=== PATIENT | female | born 1940 | race Caucasian/White ===

== ENCOUNTER 2016-08-27 16:36 | Emergency (ER) | payer MEDICARE ==
[2016-08-27 18:36] VITALS: BP 123/67
--- NOTE | 2016-08-27 19:07 | UC ---
Ear Complaint HPI - HPI Summary HPI Summary: requesting ear irrigation ears feel like they are clogged and full of pressure - History of Current Complaint Chief Complaint: UCEar Stated Complaint: EAR PAIN Time Seen by Provider: 08/27/16 18:29 Hx Obtained From: Patient ?: No Onset/Duration: Gradual Onset, Lasting Weeks, Still Present Severity Initially: Mild Severity Currently: Mild Aggravating Factors: Nothing Alleviating Factors: Nothing Associated Signs/Symptoms: Positive: Hearing Loss - Allergies/Home Medications Allergies/Adverse Reactions: Allergies Allergy/AdvReac Type Severity Reaction Status Date / Time No Known Allergies Allergy Verified 08/27/16 17:59 Home Medications: Home Medications Cyanocobalamin [B12] 1,000 mcg PO 08/27/16 [History] PMH/Surg Hx/FS Hx/Imm Hx Previously Healthy: No Endocrine History Of: Reports: Thyroid Disease - hypo Denies: Diabetes Cardiovascular History Of: Reports: Hypertension Denies: Cardiac Disorders Respiratory History Of: Denies: COPD, Asthma GI/ History Of: Denies: Ulcer Cancer History Of: Denies: Breast Cancer - Surgical History Surgical History: None Surgery Procedure, Year, and Place: tonsils as a child. retinal eye surgery - Family History Known Family History: Positive: None Family History: no cardiovascular issues reported in family lineage - Social History Occupation: Retired Lives: With Family Alcohol Use: None Substance Use Type: None Smoking Status (MU): Never Smoked Tobacco - Immunization History Most Recent Influenza Vaccination: fall 2015 Review of Systems Constitutional: Negative Skin: Negative Eyes: Negative ENT: Ear Ache - b/l Respiratory: Negative Cardiovascular: Negative Gastrointestinal: Negative Genitourinary: Negative Motor: Negative Neurovascular: Negative Musculoskeletal: Negative Neurological: Negative Psychological: Negative All Other Systems Reviewed And Are Negative: Yes Physical Exam Triage Information Reviewed: Yes Appearance: Well-Appearing, No Pain Distress, Well-Nourished Vital Signs: Initial Vital Signs Temp 98.6 F 08/27/16 17:49 Pulse 74 08/27/16 17:49 Resp 16 08/27/16 17:49 BP 141/69 08/27/16 17:49 Pulse Ox 96 08/27/16 17:49 Vital Signs Reviewed: Yes Eye Exam: Normal Eyes: Positive: Conjunctiva Clear ENT Exam: Normal ENT: Positive: Normal ENT inspection, Hearing grossly normal, Pharynx normal, Other: - cerumen impaction both ears. Negative: Nasal congestion, Nasal drainage, TMs normal, Tonsillar swelling, Tonsillar exudate, Trismus, Muffled/ hoarse voice Neck exam: Normal Neck: Positive: Supple, Nontender, No Lymphadenopathy Respiratory Exam: Normal Respiratory: Positive: Chest non-tender, Lungs clear, Normal breath sounds, No respiratory distress, No accessory muscle use Cardiovascular Exam: Normal Cardiovascular: Positive: RRR, No Murmur, Pulses Normal, Brisk Capillary Refill Musculoskeletal Exam: Normal Musculoskeletal: Positive: Strength Intact, ROM Intact, No Edema Neurological Exam: Normal Neurological: Positive: Alert, Muscle Tone Normal Psychological Exam: Normal Psychological: Positive: Normal Response To Family Re-Evaluation - Re-Evaluation First Eval Change: Improved - large amount cerumen removed from both ear---pt reports relief of symptoms Ear Complaint Course/Dx - Course Course Of Treatment: irragate ears, hypertension education and diet change suggestions follow BP with PCP - Differential Dx/Diagnosis Differential Diagnosis/HQI/PQRI: Cerumen Impaction, Otitis Externa, Otitis Media , URI Provider Diagnoses: B/l cerumen impaction resolved. High blood pressure with DX and treatment for hypertension Discharge - Discharge Plan Condition: Stable Disposition: HOME Patient Education Materials: Cerumen Impaction (ED), DASH Eating Plan (ED), Hypertension (ED) Referrals: Rylee Watkins MD [Primary Care Provider] - 2 Weeks
== END 2016-08-27 19:10 | disposition home or self-care (01) ==
LOC: UCEAST 16:36
DX: H61.23 Impacted cerumen, bilateral (principal); I10 Essential (primary) hypertension
CPT/HCPCS: 99213; G0463

== ENCOUNTER 2016-09-17 17:38 | Emergency (ER) | payer MEDICARE ==
[2016-09-17 18:14] VITALS: BP 142/73
--- NOTE | 2016-09-17 18:26 | UC ---
Throat Pain/Nasal Sean HPI - History of Current Complaint Chief Complaint: UCGeneralIllness Stated Complaint: LUMP IN THROAT Time Seen by Provider: 09/17/16 18:24 - Allergies/Home Medications Allergies/Adverse Reactions: Allergies Allergy/AdvReac Type Severity Reaction Status Date / Time No Known Allergies Allergy Verified 09/17/16 18:02 Home Medications: Home Medications Benzonatate CAP* [Tessalon 100 MG CAP*] 200 mg PO Q6HR PRN 09/17/16 [History Confirmed 09/17/16] PMH/Surg Hx/FS Hx/Imm Hx Endocrine History Of: Reports: Thyroid Disease - hypo Denies: Diabetes Cardiovascular History Of: Reports: Hypertension Denies: Cardiac Disorders Respiratory History Of: Denies: COPD, Asthma GI/ History Of: Denies: Ulcer Cancer History Of: Denies: Breast Cancer - Surgical History Surgical History: Yes Surgery Procedure, Year, and Place: tonsils as a child. retinal eye surgery - 2010 - Family History Known Family History: Positive: None Family History: no cardiovascular issues reported in family lineage - Social History Alcohol Use: Occasionally Substance Use Type: None Smoking Status (MU): Never Smoked Tobacco - Immunization History Most Recent Influenza Vaccination: fall 2015 Most Recent Pneumonia Vaccination: 2015 Physical Exam Vital Signs: Initial Vital Signs Temp 98.8 F 09/17/16 18:07 Pulse 82 09/17/16 18:07 Resp 16 09/17/16 18:07 BP 142/73 09/17/16 18:07 Pulse Ox 95 09/17/16 18:07
--- NOTE | 2016-09-17 19:32 | UC ---
Throat Pain/Nasal Sean HPI - HPI Summary HPI Summary: 76 y/o female presents to the urgent care c/o of mild sore throat and ear pressure for the past 2 weeks. Patient states she also has a mild productive cough. She reports she was seen about 3 weeks ago with ear pain and was Rx some otic antibiotic drops. Then she f/u up with her PCP who gave her a referral to the ENT for october 21. She was Rx Tessalon tabs for her cough but she still hasn't take them yet. Patient denies fever, SOB, chest pain. or ear pain. - History of Current Complaint Chief Complaint: UCGeneralIllness Stated Complaint: LUMP IN THROAT Time Seen by Provider: 09/17/16 18:24 Hx Obtained From: Patient Onset/Duration: Gradual Onset, Lasting Weeks, Still Present Severity: Moderate Pain Intensity: 0 Pain Scale Used: 0-10 Numeric Cough: Productive - clear Associated Signs & Symptoms: Positive: Fever. Negative: Wheezing, Sinus Discomfort, Nasal Discharge - Epiglottits Risk Factors Epiglottis Risk Factors: Negative - Allergies/Home Medications Allergies/Adverse Reactions: Allergies Allergy/AdvReac Type Severity Reaction Status Date / Time No Known Allergies Allergy Verified 09/17/16 18:02 Home Medications: Home Medications Benzonatate CAP* [Tessalon 100 MG CAP*] 200 mg PO Q6HR PRN 09/17/16 [History Confirmed 09/17/16] PMH/Surg Hx/FS Hx/Imm Hx Endocrine History Of: Reports: Thyroid Disease - hypo Denies: Diabetes Cardiovascular History Of: Reports: Hypertension Denies: Cardiac Disorders Respiratory History Of: Denies: COPD, Asthma GI/ History Of: Denies: Ulcer Cancer History Of: Denies: Breast Cancer - Surgical History Surgical History: Yes Surgery Procedure, Year, and Place: tonsils as a child. retinal eye surgery - 2010 - Family History Known Family History: Positive: None, Other - Pancreatic cancer, and breast cancer Family History: no cardiovascular issues reported in family lineage - Social History Alcohol Use: Occasionally Substance Use Type: None Smoking Status (MU): Never Smoked Tobacco - Immunization History Most Recent Influenza Vaccination: fall 2015 Most Recent Pneumonia Vaccination: 2015 Review of Systems Constitutional: Negative Skin: Negative Eyes: Negative ENT: Other - RT ear pressure Respiratory: Cough Cardiovascular: Negative Gastrointestinal: Negative Genitourinary: Negative Motor: Negative Neurovascular: Decreased Sensation Musculoskeletal: Negative Neurological: Negative Psychological: Negative All Other Systems Reviewed And Are Negative: Yes Physical Exam Triage Information Reviewed: Yes Appearance: Well-Appearing, No Pain Distress, Well-Nourished Vital Signs: Initial Vital Signs Temp 98.8 F 09/17/16 18:07 Pulse 82 09/17/16 18:07 Resp 16 09/17/16 18:07 BP 142/73 09/17/16 18:07 Pulse Ox 95 09/17/16 18:07 Vital Signs Reviewed: Yes Eye Exam: Normal Eyes: Positive: Conjunctiva Clear ENT: Positive: Hearing grossly normal, Pharynx normal, Other: - RT ear with impacted cerumen unable to visualize TM. LF ear canal with mild cerum, no erythema, TM pearly and positive light reflex. Dental Exam: Normal Dental: Positive: Cervical Lymphadenopathy - anterior Neck exam: Normal Respiratory Exam: Normal Respiratory: Positive: Chest non-tender, Lungs clear, Normal breath sounds Cardiovascular Exam: Normal Cardiovascular: Positive: RRR, No Murmur Abdominal Exam: Normal Abdomen Description: Positive: Nontender, No Organomegaly, Soft Bowel Sounds: Positive: Present Musculoskeletal Exam: Normal Psychological Exam: Normal Skin Exam: Normal Throat Pain/Nasal Course/Dx - Course Course Of Treatment: RT ear impacted with cerum. Some of cerume removed with currete. Patient Rx Acetic acid otic drops and advised to f/u with the ENT on October 21. - Differential Dx/Diagnosis Differential Diagnosis/HQI/PQRI: Laryngitis, Otitis Media, Peritonsillar Abscess , Pharyngitis, URI Provider Diagnoses: cough, cerumen impaction, uncontrolled HTN Discharge - Discharge Plan Condition: Stable Disposition: HOME Prescriptions: Acetic Acid (Otic) [Acetic Acid] 2 % OTIC DAILY #1 renae Patient Education Materials: Cerumen Impaction (ED), Cold Symptoms (ED) Referrals: Rylee Watkins MD [Primary Care Provider] - Additional Instructions: Please use otic drops as directed and take OTC tylenol prn to alleviate symptoms. Take Tessalon tabs as directed by your PCP and f/u with your ENT appt on October 21/2017 for further evaluation and treatment. Please decrease salt intake and f/u with your PCP for uncontrol HTN
== END 2016-09-17 19:32 | disposition home or self-care (01) ==
LOC: UCEAST 17:38
DX: R05 Cough (principal); H61.21 Impacted cerumen, right ear; I10 Essential (primary) hypertension; E03.9 Hypothyroidism, unspecified
CPT/HCPCS: 99212; G0463

== ENCOUNTER 2017-05-24 06:37 | Day surgery (SDC) | payer MEDICARE ==
--- NOTE | 2017-05-19 22:17 | HP ---
PREOPERATIVE HISTORY AND PHYSICAL: DATE OF SURGERY/ADMISSION: 05/24/17 DATE OF OFFICE VISIT/ENCOUNTER: 05/09/17 ATTENDING SURGEON: Sravani Johnson MD * (DICTATED BY RIANNA FINN) PROCEDURE: Left small finger Dupuytren's excision. CHIEF COMPLAINT: Left small finger Dupuytren's contracture. HISTORY OF PRESENT ILLNESS: This is a 76-year-old female who has a contracture of her bilateral small fingers. She thinks that they had been present for close to 2 years. She has slight pain when she makes a tight fist with her left hand; otherwise, she does not have any discomfort. She denies any injury. She has no numbness or tingling associated with it. As far as she knows, there is no one in her family who has the same condition. She has not had any treatment for this problem. She is interested in pursuing surgical intervention , first for her left small finger and then she may consider having her right small finger done as well. She has consented to proceed with a left small finger Dupuytren's excision. PAST MEDICAL HISTORY: 1. Hypothyroidism. 2. Hypertension. 3. Depression/anxiety. 4. Hypercholesterolemia. PAST SURGICAL HISTORY: Tonsillectomy. CURRENT MEDICATIONS: 1. Atorvastatin calcium 20 mg daily. 2. Clonazepam 0.5 mg p.r.n. 3. Hydrochlorothiazide 12.5 mg daily. 4. Levothyroxine sodium 100 mcg daily. 5. Sertraline HCL 100 mg daily. 6. Trifluoperazine HCL 2 mg daily. ALLERGIES: No known drug allergies. FAMILY MEDICAL HISTORY: Noncontributory. SOCIAL HISTORY: The patient is retired. She denies tobacco use and recreational drug use. She does drink alcohol on regular occasion. She said she has a glass of wine daily. REVIEW OF SYSTEMS: General: Negative for fevers, chills, or night sweats. No known anesthesia problems. HEENT: Negative for headache, lightheadedness, or syncopal episodes. Integumentary: Negative for abrasions, lesions, or open wounds. Cardiothoracic: Positive for hypertension. Negative for chest pain, palpitations, or edema. Pulmonary: Negative for shortness of breath with exertion, chronic cough, COPD. GI: Negative for nausea, vomiting, diarrhea, constipation, and GERD. : Negative for nocturia, urinary frequency, urgency , history of UTIs, or kidney problems. Musculoskeletal: Positive for current complaints. Negative for chronic or intermittent back pain or history of fractures. Neurological: Positive for depression/anxiety. Negative for paresthesias, numbness, history of seizure, stroke, or epilepsy. Endocrine: Positive for hypothyroidism. Negative for diabetes. Hematologic: Negative for easy bruising, anemia, excessive bleeding or history of DVT. Infectious Disease: Negative for history of MRSA, hepatitis C or HIV. PHYSICAL EXAMINATION GENERAL: Well-developed, well-nourished 76-year-old female in no acute distress. VITAL SIGNS: Height 4 feet 9 Inches, weight 140 pounds, pulse rate 82, blood pressure 120/80. HEENT: Normocephalic, atraumatic. Pupils are equal, round, and reactive to light and accommodation. Extraocular movements are intact. Throat is clear. NECK: Supple. No palpable lymph nodes. PULMONARY: Lungs are clear to auscultation bilaterally. No wheezes, rales, or rhonchi. CARDIOVASCULAR: Regular rate and rhythm. S1, S2. No murmurs, rubs, or gallops. No edema. ABDOMEN: Positive bowel sounds, soft, nontender. NEUROLOGICAL: Alert and oriented x3. Cranial nerves II through XII are intact. Sensation is intact to light touch. MUSCULOSKELETAL: On exam of her left hand, she has a Dupuytren's contracture of her small finger with abductor digiti minimi cord with about a 20-degree contracture of the PIP joint. There is no MP joint contracture. She has full flexion of her fingers into a fist. Skin is intact. There is a slight nodule in the palm of her left hand in line with the ring finger. Neurovascular function is intact. ASSESSMENT: Left small finger Dupuytren's contracture. PLAN: The patient is scheduled to undergo a left small finger Dupuytren's excision with Dr. Johnson on 05/24/17. She will return to the office 10 days postop for followup and suture removal. A prescription for [place] was e-scribed to the patient's pharmacy for postoperative pain management. RIANNA FINN [id number]/[facility] #: [id number] SHEMAR
[~2017-05-24 06:37] MED LIST: Buffered Lidocaine 0.9% SYRIN* 5 ML/SYR SYRINGE INTRADERM ONE; DiMENhydriNATE IV* 50 MG/ML VIAL IV PUSH PRN; Famotidine IV* 10 MG/ML 2 ML (20 mg) IV ONE; Morphine INJ* 2 MG/ML 1 ML CARPUJECT IV PRN; Naloxone* 0.4 MG/ML 1 ML VIAL IV PRN; PROCHLORPERAZINE INJ 5 MG/ML 2 ML VIAL IV PRN; fentaNYL* 50 MCG/ML 2 ML VIAL (100 MCG VIAL) IV PRN; oxyCODONE/Acetamin 5/325 MG* TAB PO PRN
[2017-05-24] MEDS ORDERED: Famotidine IV* 10 MG/ML 2 ML (20 mg) ONE (06:43)
[2017-05-24] MEDS ORDERED: ceFAZolin 2 GM PREMIX (*) 2 GM/50 ML BAG IVPB ONE (06:45)
[2017-05-24] MEDS ORDERED: Lidocaine 1% INJ* 10 MG/ML 30 ML SDV ONE (07:11)
[2017-05-24] MEDS ORDERED: fentaNYL* 50 MCG/ML 2 ML VIAL (100 MCG VIAL) ONE (07:25)
[2017-05-24] MEDS ORDERED: Midazolam* 1 MG/ML 2 ML VIAL (2 MG) ONE (07:25)
[2017-05-24] MEDS ORDERED: KETAMINE HCL* 50 MG/ML 10 ML VIAL ONE (07:25)
[2017-05-24] MEDS ORDERED: Flumazenil* 0.1 MG/ML 5 ML MDV ONE (08:00)
[2017-05-24] MEDS ORDERED: Propofol* 10 MG/ML 20 ML BTL IV PUSH ONE (08:04)
[2017-05-24] MEDS ORDERED: Lidocaine 2% PF * 5 ML VIAL ONE (08:04)
[2017-05-24] MEDS ORDERED: Dexamethasone IV* 4 MG/ML 1 ML (4 MG) ONE (08:04)
[2017-05-24] MEDS ORDERED: Ketorolac INJ* 30 MG/ML 1 ML VIAL ONE (08:04)
[2017-05-24] MEDS ORDERED: Ondansetron INJ* 2 MG/ML VIAL ONE (08:04)
[2017-05-24 09:10] VITALS: BP 108/77
--- NOTE | 2017-05-25 00:08 | OP ---
DATE OF OPERATION: 05/24/17 [facility] DATE OF : 40 SURGEON: Sravani Johnson MD EDUCATION ADMINISTRATOR: RIANNA Mukherjee. ANESTHESIA: Local MAC. PRE-OP DIAGNOSIS: Dupuytren's contracture of the left small finger. POST-OP DIAGNOSIS: Dupuytren's contracture of the left small finger. OPERATIVE PROCEDURE: Left small finger Dupuytren's excision. ESTIMATED BLOOD LOSS: Zero. TOURNIQUET TIME: 25 minutes. INDICATIONS FOR PROCEDURE: Ricardo is a 76-year-old female with a Dupuytren's contracture of her left small finger PIP joint. She presents for excision. DESCRIPTION OF PROCEDURE: The patient was brought to the operating room, was given a sedation anesthetic and a local infiltration with 10 cc of 1% plain lidocaine in the palm of her left hand at the base of the small finger. The skin of her left hand and forearm was prepped and draped in the usual sterile fashion. The hand and forearm were exsanguinated and the tourniquet elevated to 250 mmHg. A zig-zag incision was made centered over the cord which was an abductor digiti minimi cord. The skin flaps were carefully elevated and the Dupuytren's tissue dissected away from the skin and away from the ulnar digital nerve. It was removed and this released the contracture of the small finger. The wound was irrigated and the skin edges reapproximated with 4-0 nylon suture. The wound was dressed with Xeroform, 4x4, Webril, and Coban. The patient tolerated the procedure well and was brought to the recovery room in good condition. [id number]/[facility] #: [id number] [facility]
== END 2017-05-24 09:25 | disposition home or self-care (01) ==
LOC: OREAST 06:37
PROVIDERS: ATTEND Orthopaedic Surgery
DX: M72.0 Palmar fascial fibromatosis [Dupuytren] (principal); I10 Essential (primary) hypertension; E78.5 Hyperlipidemia, unspecified; E03.9 Hypothyroidism, unspecified; F41.8 Other specified anxiety disorders
CPT/HCPCS: 88304; J0690; J1100; J1885; J2250; J2405; J2704; J3010